=== PATIENT | female | born 1940 | race Caucasian/White ===

== ENCOUNTER 2024-10-20 10:05 | Emergency (ER) | payer MEDICARE, OTHER ==
[~2024-10-20] VITALS: Ht 165.1 cm; Wt 70.0 kg
[2024-10-20 10:12] VITALS: BP 131/86
[2024-10-20 10:26] LABS: URINE BILIRUBIN - DIPSTICK Negative (NEGATIVE); URINE BLOOD DIPSTICK Small (NEGATIVE); URINE GLUCOSE - DIPSTICK Negative (NEGATIVE); URINE KETONE Trace mg/dL (NEGATIVE); URINE PH 6.5 (4.5-8.0); URINE PROTEIN - DIPSTICK 30 mg/dL (NEG-TRACE); URINE SPECIFIC GRAVITY 1.015
[2024-10-20 10:27] LABS: URINE COLOR Yellow; URINE NITRITE - DIPSTICK Positive (Negative)
[2024-10-20 10:28] LABS: URINE LEUK ESTERASE Moderate (NEGATIVE)
[2024-10-20 10:29] LABS: URINE BACTERIA MANY hpf; URINE EPITHELIAL CELLS MODERATE EPI/hpf (0-FEW)
[2024-10-20] MEDS ORDERED: NITROFURANTN100 M2 PO (10:45)
[2024-10-20] MEDS ORDERED: PYRIDIUM200 MG PO (10:45)
[2024-10-20 10:54] VITALS: BP 131/86
== END 2024-10-20 10:59 | disposition home or self-care (01) ==
LOC: ED 10:05
PROVIDERS: Emergency Medicine
DX: R30.0 Dysuria (principal); E03.9 Hypothyroidism, unspecified; E78.5 Hyperlipidemia, unspecified; I10 Essential (primary) hypertension

== ENCOUNTER 2024-12-18 09:19 | Emergency (ER) | payer MEDICARE, OTHER ==
[~2024-12-18] VITALS: Ht 165.1 cm; Wt 68.0 kg
[~2024-12-18 09:19] MED LIST: NITROFURANTN100 M2 PO; PYRIDIUM200 MG PO
[2024-12-18 09:25] VITALS: BP 133/68
[2024-12-18 09:37] VITALS: BP 136/62
[2024-12-18 09:45] VITALS: BP 115/60
[2024-12-18 09:48] LABS: URINE BLOOD DIPSTICK Trace-lysed (NEGATIVE); URINE GLUCOSE - DIPSTICK 100 mg/dL (NEGATIVE); URINE KETONE Trace mg/dL (NEGATIVE); URINE PH 5.5 (4.5-8.0); URINE PROTEIN - DIPSTICK 100 mg/dL (NEG-TRACE); URINE SPECIFIC GRAVITY 1.015
[2024-12-18 09:50] LABS: URINE LEUK ESTERASE Large (NEGATIVE); URINE NITRITE - DIPSTICK Positive (Negative)
[2024-12-18 09:51] LABS: URINE COLOR Orange
[2024-12-18 09:55] LABS: URINE RBC 0-2 RBC/hpf (0-5); URINE WBC 20-50 WBC/hpf (0-5)
[2024-12-18 09:56] LABS: URINE BACTERIA MANY hpf; URINE SQUAMOUS EPITHELIAL CELL FEW EPI/hpf (0-FEW)
[2024-12-18 10:00] VITALS: BP 111/91
[2024-12-18] MEDS ORDERED: MACROBID100 M1 PO (10:03)
[2024-12-18 10:15] VITALS: BP 125/51
== END 2024-12-18 10:32 | disposition home or self-care (01) ==
LOC: ED 09:19
PROVIDERS: Family Medicine
DX: N39.0 Urinary tract infection, site not specified (principal); B96.1 Klebsiella pneumoniae [K. pneumoniae] as the cause of diseases classified elsewhere; I10 Essential (primary) hypertension; E03.9 Hypothyroidism, unspecified; E78.5 Hyperlipidemia, unspecified; Z87.440 Personal history of urinary (tract) infections